=== PATIENT | female | born 1950 | race Caucasian/White ===

== ENCOUNTER → 2016-05-21 | Outpatient (CLI) | payer MEDICARE, OTHER ==
--- NOTE | 2016-05-21 15:19 | RAD ---
EXAM DESCRIPTION: Left foot series. CLINICAL HISTORY: Left foot pain. COMPARISON: None. TECHNIQUE: Three views were submitted for evaluation. FINDINGS: Valgus deformity of great toe. Small calcaneal spur noted. No fracture, dislocation, or suspicious radiopaque foreign body is seen. Soft tissues are unremarkable. IMPRESSION: Valgus deformity of great toe with mild degenerative change noted within the 1st MTP joint. No additional evidence of degenerative change or fracture. Electronically signed by: Derrick Braswell MD 05/21/2016 15:17
== END ==
LOC: RAD 14:46
PROVIDERS: ATTEND Family Medicine
DX: M79.672 Pain in left foot (principal); M20.5X2 Other deformities of toe(s) (acquired), left foot; M12.872 Other specific arthropathies, not elsewhere classified, left ankle and foot

== ENCOUNTER → 2016-05-29 | Outpatient (CLI) | payer MEDICARE, OTHER ==
--- NOTE | 2016-05-29 10:30 | RAD ---
EXAM DESCRIPTION: XR FOOT 3 OR MORE VIEWS CLINICAL HISTORY: 66 y/o ,F, PAIN IN LEFT FOOT COMPARISON: May 21, 2016. IMPRESSION: No definitive fracture noted on today's exam. All findings are unchanged when compared November 18, 2006 the Electronically signed by: Derrick Braswell MD 05/29/2016 10:28
== END ==
LOC: RAD 07:50
PROVIDERS: ATTEND Orthopaedic Surgery
DX: M79.672 Pain in left foot (principal)

== ENCOUNTER → 2018-03-30 | Outpatient (CLI) | payer MEDICARE, OTHER | LOC: GMAH 10:45 | PROVIDERS: ATTEND Family Medicine | DX: I10 Essential (primary) hypertension (principal); E78.2 Mixed hyperlipidemia ==

== ENCOUNTER → 2018-06-17 | Outpatient (CLI) | payer MEDICARE, OTHER ==
--- NOTE | 2018-06-18 16:39 | MAM ---
EXAM DESCRIPTION: 3D Screening BILATERAL : Digital Mammography. CLINICAL HISTORY: 68 years Female SCREENING . No complaints. No personal or family history of breast cancer childbirth. Postmenopausal. Taking HRT 5 or more years ago. Bilateral breast augmentation. Lifetime risk of developing breast cancer (Tyrer-Cuzick model)(%): 4.5. COMPARISON: Bilateral 2-D digital screening bilateral mammographic examination with Alexandre implant displacement technique. TECHNIQUE: Bilateral CC and MLO projection full-field images, with Alexandre Implant Displacement digital tomosynthesis mammographic technique. Bilateral 2-D digital full-field images, MLO and CC projections, non-displaced. CAD Bilateral digital 2-D full-field MLO images. CAD not available for tomosynthesis or 2-D images. FINDINGS: The breast parenchymal density pattern is: Heterogeneously dense breast tissue, which may obscure small masses. No skin thickening or nipple retraction. Bilateral solitary microcalcifications. Left lateral intramammary lymph nodes. Bilateral silicon retroglandular breast implants. Minimal irregularity of the capsules has progressed since the prior study. Bilateral axillary lymph nodes. No new focal, stellate mass or density, focal asymmetry , and no suspicious microcalcifications bilaterally. IMPRESSION: Benign exam. BIRAD CATEGORY: 2 BENIGN FINDINGS. RECOMMENDATIONS: FOLLOW UP: Routine digital bilateral mammographic screening, one year interval from June 2018. Written communication explaining the IMPRESSION and follow-up, will be mailed to the patient and referring health care provider. According to the [employer], yearly mammograms are recommended starting at age 40 and continuing as long as a woman is in good health. Any breast change noted on a breast self-exam should be reported promptly to the patient's healthcare provider. Breast MRI is recommended for women with an approximately 20-25% or greater lifetime risk of breast cancer, including women with a strong family history of breast or ovarian cancer and women who have been treated for Hodgkin's disease. A negative mammographic report should not delay tissue diagnosis in patients with significant clinical history or physical findings. Extremely dense breast tissue limits the sensitivity of digital mammography. Electronically signed by: Sunil Fischer MD 06/18/2018 4:37 PM COMPUTER FORENSIC SPECIALIST
== END ==
LOC: MAMMO 15:06
PROVIDERS: ATTEND Family Medicine
DX: Z12.31 Encounter for screening mammogram for malignant neoplasm of breast (principal)

== ENCOUNTER → 2019-09-14 | Outpatient (CLI) | payer MEDICARE, OTHER | LOC: GMA MATASK 11:01 | PROVIDERS: ATTEND Family Medicine | DX: I10 Essential (primary) hypertension (principal) ==

== ENCOUNTER → 2020-02-23 | Outpatient (CLI) | payer MEDICARE, OTHER ==
--- NOTE | 2020-02-23 17:23 | RAD ---
EXAM DESCRIPTION: Ankle,Left 3 Views CLINICAL HISTORY: ANKLE PAIN LEFT COMPARISON: and May 2016 TECHNIQUE: 3 views left FINDINGS: A plate and screws are seen bridging a fracture of the distal fibula. Screw fixation of a medial malleolar fracture is observed. The fractures are no longer readily evident. The ankle mortise is intact. No new injury is seen. A plantar calcaneal spur is observed. Mild intertarsal arthritis is seen. IMPRESSION: Degenerative changes and evidence of a prior ankle fracture observed. No acute injury is detected. Electronically signed by: Gigi Osborne MD 02/23/2020 5:22 PM CDT
== END ==
LOC: RAD 07:58
PROVIDERS: ATTEND Orthopaedic Surgery
DX: M19.072 Primary osteoarthritis, left ankle and foot (principal); Z87.81 Personal history of (healed) traumatic fracture

== ENCOUNTER → 2020-06-01 | Outpatient (CLI) | payer MEDICARE, OTHER ==
--- NOTE | 2020-06-01 13:49 | US ---
EXAM DESCRIPTION: Venous,Lower Extremity RT: ULTRASOUND. CLINICAL HISTORY: PAIN IN RIGHT LOWER LEG COMPARISON: None Available. TECHNIQUE: Cox-scale and doppler sonographic evaluation of the deep venous system of the right lower extremity. FINDINGS: Doppler evaluation shows normal color flow and normal phasicity and augmentation of the right common femoral vein, right femoral vein, popliteal vein, right greater saphenous vein, junction with the CFV. Also normal color flow and normal phasicity and augmentation of the right peroneal, and posterior tibial vein. The right lower extremity deep veins were completely compressible; normal occlusion with transducer pressure. Cox-scale survey showed no echogenic thrombus within these veins. IMPRESSION: 1. Duplex ultrasound evaluation of the right lower extremity deep venous system showing no evidence of thrombosis. Electronically signed by: Sunil Fischer MD 06/01/2020 1:48 PM UPPER CASER
== END ==
LOC: US 09:04
PROVIDERS: ATTEND Family Medicine
DX: M79.661 Pain in right lower leg (principal)

== ENCOUNTER → 2020-06-11 | Outpatient (CLI) | payer MEDICARE, OTHER ==
--- NOTE | 2020-06-11 13:20 | US ---
EXAM DESCRIPTION: Extremity,Lower RT Arteries CLINICAL HISTORY: 70 years Female, PN IN RIGHT LOWER LEG COMPARISON: Venous ultrasound June 01, 2020. TECHNIQUE: 2-D grayscale and color arterial duplex Doppler evaluation of the right lower extremity performed. FINDINGS: [id number] scattered calcified plaque of the arterial vasculature of the right lower extremity is seen. Triphasic to biphasic waveform flow from common femoral artery to the trifurcation vessels is seen with no elevated velocities or ratios. Incidentally noted is hypoechoic thrombus and noncompressibility of the right popliteal vein, peroneal veins, and posterior tibial veins. IMPRESSION: Mild atherosclerotic disease of the right lower extremity seen without ultrasound evidence of high-grade or flow limiting stenosis. Incidentally noted deep vein thrombosis of the right posterior tibialis veins, peroneal veins, and popliteal vein. The technologist KV preliminary report to Dr. Boles's office at 1250 hours on June 11, 2020. Electronically signed by: Misha Newton MD 06/11/2020 1:19 PM FORMING PROCESS WORKER
== END ==
LOC: US 11:53
PROVIDERS: ATTEND Family Medicine
DX: I82.442 Acute embolism and thrombosis of left tibial vein (principal); I82.451 Acute embolism and thrombosis of right peroneal vein; I82.431 Acute embolism and thrombosis of right popliteal vein; I70.211 Atherosclerosis of native arteries of extremities with intermittent claudication, right leg